=== PATIENT | female | born 1960 | race Caucasian/White ===

== ENCOUNTER 2021-09-22 13:58 | Inpatient (IN) | payer OTHER ==
[~2021-09-22] VITALS: Ht 162.6 cm; Wt 77.1 kg
[2021-09-22] MEDS ORDERED: IV NORMAL SALINE 1000 ML BAG IV ONE (14:30)
[2021-09-22] MEDS ORDERED: CETI-90 PO (14:43)
[2021-09-22] MEDS ORDERED: RISP2TAB85 PO (14:43)
[2021-09-22] MEDS ORDERED: OMEP20TA5 PO (14:43)
[2021-09-22] MEDS ORDERED: SIMV-49 PO (14:43)
[2021-09-22] MEDS ORDERED: TRAZ-182 PO (14:43)
[2021-09-22] MEDS ORDERED: LISI1TAB32 PO (14:43)
--- NOTE | 2021-09-22 14:50 | NUR ---
DR COLEMAN AT BEDSIDE FOR MSE.
[2021-09-22 15:13] LABS: HEMATOCRIT 37.6 % (31.2-41.9); MEAN CORPUSCULAR HEMOGLOBIN 34.3 uug (24.7-32.8); MEAN CORPUSCULAR VOLUME 100.4 fL (75.5-95.3); PLATELET COUNT (AUTO) 248 K/uL (179-408)
[2021-09-22 15:24] LABS: CARBON DIOXIDE 25 mmol/L (21-32); CHLORIDE 105 mmol/L (98-107); CREATININE 0.9 mg/dL (0.6-1.3); GLUCOSE 113 mg/dL (74-106); POTASSIUM 3.2 mmol/L (3.5-5.1); UREA NITROGEN, BLOOD 12 mg/dL (7-18)
[2021-09-22 15:37] LABS: ALANINE AMINOTRANSFERASE 31 U/L (14-59); ALKALINE PHOSPHATASE 64 U/L (50-136); ASPARTATE AMINOTRANSFERASE 19 U/L (15-37); BILIRUBIN,DIRECT < 0.1 mg/dL (0.0-0.2); BILIRUBIN,TOTAL 0.6 mg/dL (0.2-1.0)
[2021-09-22] MEDS ORDERED: POTASSIUM BICARBONATE/CIT AC 25 MEQ TABLET.EFF PO ONE (15:45)
[2021-09-22] MEDS ORDERED: POTASSIUM BICARBONATE/CIT AC 25 MEQ TABLET.EFF ONE (15:59)
[2021-09-22] MEDS ORDERED: ASPIRIN 325 MG TABLET PO ONE (16:00)
--- NOTE | 2021-09-22 16:01 | NUR ---
PT WITH ELEVATED TROPONIN: 0.073. PER DR COLEMAN. PT FOR ADMISSION DX: NSTEMI. REPEAT EKG ORDERED.
--- NOTE | 2021-09-22 16:25 | NUR ---
PT TO CT/LEFT IN STABLE CONDITION.
--- NOTE | 2021-09-22 16:40 | NUR ---
PT BACK FROM CT/
--- NOTE | 2021-09-22 17:02 | NUR ---
DR BELL ACCEPTED PT FOR JOSE A ADMISSION. DX: NSTEMI. CALLED 3RD FLOOR/ PER CHARGE NURSE, THEY WILL CALL US FOR BED AVAILABILITY.
[2021-09-22 17:07] LABS: *BILIRUBIN,URIN NEGATIVE (NEGATIVE); *BLOOD, URINE NEGATIVE (NEGATIVE); *CLARITY,URINE CLEAR (CLEAR); *COLOR,URINE YELLOW (YELLOW); *KETONES,URINE NEGATIVE (NEGATIVE); LEUKOCYTE ESTERASE ,URINE NEGATIVE (NEGATIVE); NITRITE, URINE NEGATIVE (NEGATIVE); PH,URINE 5.5 (5.0-8.0); UGLUCOSE NEGATIVE (NEGATIVE)
[2021-09-22] MEDS ORDERED: ONDANSETRON 4 MG/2 ML VIAL IV PRN (17:15)
[2021-09-22] MEDS ORDERED: MAGNESIUM HYDROXIDE 30 ML LIQUID UDC PO PRN (17:15)
[2021-09-22] MEDS ORDERED: ACETAMINOPHEN 325 MG TABLET PO PRN (17:15)
[2021-09-22] MEDS ORDERED: TEMAZEPAM 7.5 MG CAPSULE PO PRN (17:15)
--- NOTE | 2021-09-22 18:32 | NUR ---
PER CHARGE NURSE, ROOM 316 FOR PT. ROOM IS BEING CLEANED.
--- NOTE | 2021-09-22 19:09 | NUR ---
REPORT GIVEN TO RENETTA MARTE.
--- NOTE | 2021-09-22 20:55 | NUR ---
Transfered to 3rd floor Tele.
[2021-09-22] MEDS: DOCUSATE SODIUM 100 MG CAPSULE PO SCH (22:22)
[2021-09-22] MEDS: SIMVASTATIN 40 MG TABLET PO SCH (22:23)
[2021-09-22] MEDS: TRAZODONE 50 MG TABLET PO SCH (22:23)
[2021-09-22 23:00] VITALS: BP 88/50
[2021-09-23] VITALS (7 sets, daily range): BP systolic 82–123; BP diastolic 35–60
[2021-09-23] MEDS: PANTOPRAZOLE SODIUM 40 MG TABLET.DR PO SCH (06:31)
[2021-09-23 06:42] LABS: HEMATOCRIT 33.9 % (31.2-41.9); MEAN CORPUSCULAR HEMOGLOBIN 34.4 uug (24.7-32.8); MEAN CORPUSCULAR VOLUME 100.7 fL (75.5-95.3); PLATELET COUNT (AUTO) 256 K/uL (179-408)
--- NOTE | 2021-09-23 06:51 | NUR ---
Admitted to 316; no acute distress; placed on tele; pt's sbp in the 90s; assisted to meet hygiene needs; placed on fall precaution; needs attended; continue to observe; continue plan of care.
[2021-09-23 07:17] LABS: BILIRUBIN,TOTAL 0.5 mg/dL (0.2-1.0); CREATININE 0.8 mg/dL (0.6-1.3); MAGNESIUM 2.1 mg/dL (1.8-2.4); PHOSPHOROUS 3.3 mg/dL (2.5-4.9); POTASSIUM 3.9 mmol/L (3.5-5.1); TOTAL PROTEIN, SERUM 6.3 g/dL (6.4-8.2)
[2021-09-23 07:50] LABS: THYROID STIMULATING HORMONE 0.977 mIU/mL (0.358-3.740)
[2021-09-23] MEDS ORDERED: IV NORMAL SALINE 1000 ML BAG IV ONE (08:30)
[2021-09-23] MEDS ORDERED: ASPIRIN EC 325 MG TABLET.DR PO SCH (09:00)
--- NOTE | 2021-09-23 14:00 | NUR ---
Denies pain or discomfort today. Daughters at bedside. Seen by Dr. Buenrostro & Dr. brooks today.
--- NOTE | 2021-09-23 15:30 | NUR ---
Bolus with 1 liter of NS today. Voiding qs.
[2021-09-23] MEDS: DOCUSATE SODIUM 100 MG CAPSULE PO SCH (21:27)
[2021-09-23] MEDS: TRAZODONE 50 MG TABLET PO SCH (21:27)
[2021-09-23] MEDS: SIMVASTATIN 40 MG TABLET PO SCH (21:27)
--- NOTE | 2021-09-23 23:15 | NUR ---
received updates fr Nurse Abdi; agree with previous assessment; will continue to monitor.
[2021-09-24] VITALS: BP 112/67
[2021-09-24 04:00] VITALS: BP 141/59
[2021-09-24] MEDS: PANTOPRAZOLE SODIUM 40 MG TABLET.DR PO SCH (06:46)
[2021-09-24 07:43] LABS: HEMATOCRIT 35.2 % (31.2-41.9); MEAN CORPUSCULAR HEMOGLOBIN 33.9 uug (24.7-32.8); MEAN CORPUSCULAR VOLUME 100.3 fL (75.5-95.3); PLATELET COUNT (AUTO) 258 K/uL (179-408)
--- NOTE | 2021-09-24 08:00 | NUR ---
resting in bed, denies of pain, no dizziness, explained plan of care- verbalized understanding, call light on within reach
[2021-09-24 08:03] LABS: CREATININE 0.7 mg/dL (0.6-1.3)
[2021-09-24] MEDS ORDERED: IV NORMAL SALINE 250 ML IV ONE (09:26)
[2021-09-24] MEDS ORDERED: IOHEXOL 350 100 ML INFUS..BTL ONE ×2 (09:26→11:05)
[2021-09-24] MEDS ORDERED: SWABABLE VALVE TRANSFER SET EA MC ONE (09:26)
--- NOTE | 2021-09-24 11:00 | NUR ---
to radiology for CTA chest per w/c
[2021-09-24 12:11] VITALS: BP 122/68
--- NOTE | 2021-09-24 13:21 | NUR ---
daughter at bedside, tele SR, denies of any discomfort, no dizziness
[2021-09-24 16:00] VITALS: BP 132/76
--- NOTE | 2021-09-24 16:20 | NUR ---
pt is going home, discharge instructions given josue daughter, verbalized understanding, saline lock removed- no swelling/redness noted on site,
--- NOTE | 2021-09-24 16:45 | NUR ---
[id number] to car per w/c under daughter' care, pt in stable condition, all belongings wisth her
== END 2021-09-24 16:45 | disposition home or self-care (01) | DRG 74 ==
LOC: ER 13:58 → TELE-TD3 20:12 → TELE3 09-23 08:19
PROVIDERS: ADMIT Nurse Practitioner Family; ATTEND Nurse Practitioner Family
DX: G90.8 Other disorders of autonomic nervous system (principal); T46.4X5A Adverse effect of angiotensin-converting-enzyme inhibitors, initial encounter; T50.2X5A Adverse effect of carbonic-anhydrase inhibitors, benzothiadiazides and other diuretics, initial encounter; I10 Essential (primary) hypertension; E87.6 Hypokalemia; E78.5 Hyperlipidemia, unspecified; F31.9 Bipolar disorder, unspecified; R77.8 Other specified abnormalities of plasma proteins; Y92.009 Unspecified place in unspecified non-institutional (private) residence as the place of occurrence of the external cause; Z20.822 Contact with and (suspected) exposure to COVID-19
CPT/HCPCS: 36415; 70030-TC; 70450; 71045; 71275; 83735; 84100; 84443; 85025; 85610; 85651; 87086; 93005; 93307; 93880; 97161; A4663; G0378; J7030; J7050; Q9967

== ENCOUNTER 2024-03-03 10:50 | Emergency (ER) | payer OTHER ==
[~2024-03-03] VITALS: Ht 165.1 cm; Wt 72.6 kg
[~2024-03-03 10:50] MED LIST: CETI-90 PO; OMEP20TA5 PO; RISP2TAB85 PO; SIMV-49 PO; TRAZ-182 PO
[2024-03-03] MEDS ORDERED: ACETAMINOPHEN ES 500 MG TABLET ONE (11:12)
[2024-03-03] MEDS ORDERED: IBUPROFEN 400 MG TABLET ONE (11:13)
[2024-03-03] MEDS: ACETAMINOPHEN ES 500 MG TABLET PO ONE (11:17)
[2024-03-03] MEDS: IBUPROFEN 400 MG TABLET PO ONE (11:17)
[2024-03-03 12:39] VITALS: BP 120/56; O2SAT 99
== END 2024-03-03 12:40 | disposition home or self-care (01) ==
LOC: ER 10:50
DX: S30.0XXA Contusion of lower back and pelvis, initial encounter (principal); K21.9 Gastro-esophageal reflux disease without esophagitis; F31.9 Bipolar disorder, unspecified; Z79.899 Other long term (current) drug therapy; W18.39XA Other fall on same level, initial encounter; Y93.89 Activity, other specified; Y92.89 Other specified places as the place of occurrence of the external cause; Y99.8 Other external cause status
CPT/HCPCS: 72220; A4606; A4663; A9150

== ENCOUNTER 2025-07-31 13:53 | Inpatient (IN) | payer OTHER ==
[~2025-07-31] VITALS: Ht 157.5 cm; Wt 54.4 kg
[2025-07-31 14:20] LABS: PLATELET COUNT (AUTO) 174 K/uL (179-408); RED BLOOD CELL COUNT(AUTO) 3.89 MIL/uL (3.63-4.92); RED CELL DISTRIBUTION WIDTH 12.9 % (12.3-17.7); WHITE BLOOD COUNT (AUTO) 5.0 K/uL (3.8-11.8)
[2025-07-31 14:28] LABS: CREATININE 1.0 mg/dL (0.6-1.3); SODIUM SERUM 141 mmol/L (136-145); UREA NITROGEN, BLOOD 11 mg/dL (7-18)
[2025-07-31 14:34] LABS: ASPARTATE AMINOTRANSFERASE 58 U/L (15-37); TOTAL PROTEIN, SERUM 6.8 g/dL (6.4-8.2)
[2025-07-31] MEDS: IV NORMAL SALINE 1000 ML BAG IV ONE (15:00)
[2025-07-31] MEDS ORDERED: SWABABLE VALVE TRANSFER SET EA MC ONE (15:08)
[2025-07-31] MEDS ORDERED: IOHEXOL 350 100 ML INFUS..BTL ONE (15:08)
[2025-07-31] MEDS ORDERED: IV NORMAL SALINE 250 ML IV ONE (15:08)
[2025-07-31 16:00] VITALS: BP 126/74
[2025-07-31] MEDS ORDERED: ROSU10TA2 PO (17:08)
[2025-07-31 17:10] LABS: *BILIRUBIN,URIN NEGATIVE (NEGATIVE); *BLOOD, URINE NEGATIVE (NEGATIVE); *CLARITY,URINE CLEAR (CLEAR); *COLOR,URINE YELLOW (YELLOW); *KETONES,URINE NEGATIVE (NEGATIVE); *PROTEIN,URINE NEGATIVE (NEGATIVE); *UROBILINOGEN,URINE 0.2 E.U./dl (NORMAL); LEUKOCYTE ESTERASE ,URINE TRACE (NEGATIVE); NITRITE, URINE NEGATIVE (NEGATIVE); UGLUCOSE NEGATIVE (NEGATIVE)
[2025-07-31 17:28] LABS: SQUAMOUS EPITHELIAL CELL,UR MODERATE /HPF (NONE SEEN)
[2025-07-31 18:52] VITALS: BP 120/66; TEMP 98.4; O2SAT 100
[2025-07-31 19:00] VITALS: BP 119/65; TEMP 98.2; O2SAT 95
[2025-07-31] MEDS: ATORVASTATIN 40 MG TABLET PO SCH (21:00)
[2025-07-31] MEDS ORDERED: ACETAMINOPHEN 325 MG TABLET PO PRN (23:45)
[2025-07-31] MEDS ORDERED: ONDANSETRON 4 MG/2 ML VIAL IV PRN (23:45)
[2025-07-31] MEDS ORDERED: REMEDY ESSENTIAL ZINC PASTE 113 GM TP PRN (23:45)
[2025-08-01] VITALS: BP 127/70; TEMP 97.6; O2SAT 94
[2025-08-01] MEDS: IV NS 1000 ML 1,000 ML IV PRN (02:12)
[2025-08-01 04:00] VITALS: BP 132/71; TEMP 98; O2SAT 94
[2025-08-01 06:48] LABS: PLATELET COUNT (AUTO) 177 K/uL (179-408); RED BLOOD CELL COUNT(AUTO) 3.66 MIL/uL (3.63-4.92); RED CELL DISTRIBUTION WIDTH 12.9 % (12.3-17.7); WHITE BLOOD COUNT (AUTO) 6.2 K/uL (3.8-11.8)
[2025-08-01] MEDS: PANTOPRAZOLE SODIUM 40 MG TABLET.DR PO SCH (06:48)
[2025-08-01 07:24] LABS: CREATININE 0.8 mg/dL (0.6-1.3); SODIUM SERUM 144.0 mmol/L (136-145); UREA NITROGEN, BLOOD 5.0 mg/dL (7-18)
[2025-08-01 07:44] VITALS: BP 124/71; TEMP 98.2; O2SAT 95
[2025-08-01] MEDS: ENOXAPARIN SODIUM 40 MG/0.4 ML DISP.SYRIN SQ SCH (09:49)
[2025-08-01 11:10] VITALS: BP 126/72; TEMP 98.5; O2SAT 94
[2025-08-01] MEDS: POTASSIUM CHLORIDE 20 MEQ TAB.PRT.SR PO ONE (12:21)
== END 2025-08-01 16:45 | disposition home or self-care (01) | DRG 73 ==
LOC: ER 13:53 → TELE3 18:20 → MEDSURG3 08-01 11:40
PROVIDERS: ADMIT Nurse Practitioner Acute Care; ATTEND Nurse Practitioner Acute Care
DX: G90.89 Other disorders of autonomic nervous system (principal); I21.A1 Myocardial infarction type 2; N39.0 Urinary tract infection, site not specified; J98.11 Atelectasis; E87.6 Hypokalemia; D69.6 Thrombocytopenia, unspecified; F31.9 Bipolar disorder, unspecified; R79.1 Abnormal coagulation profile; E78.5 Hyperlipidemia, unspecified; K21.9 Gastro-esophageal reflux disease without esophagitis; R09.02 Hypoxemia; I25.10 Atherosclerotic heart disease of native coronary artery without angina pectoris; I10 Essential (primary) hypertension; Z79.899 Other long term (current) drug therapy
CPT/HCPCS: 36415; 71045; 71275; 83735; 84100; 84443; 84484; 85025; 85730; 87086; 93005; 93307; G0378; J1650; J7040; Q9967